=== PATIENT | male | born 1975 | race Caucasian/White ===

== ENCOUNTER 2018-03-01 04:57 | Observation (INO) | payer OTHER, SELFPAY ==
[2018-03-01] VITALS (8 sets, daily range): BP systolic 101–136; BP diastolic 42–80; PULSE 51–88; RESP 14–18; TEMP 36.3–36.7; O2SAT 97–99; BMI 37.5; BMI 35.9
--- NOTE | 2018-03-01 05:37 | ED.DCSUM_ITS ---
- ER Visit Summary Date of Service: 03/01/18 Chief Complaint: biLateral arm pain and weakness History of Present Illness: The patient is a 42 M who presents for 1 day of bilateral arm pain and weakness. 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 He rolled over in bed and when he woke up noted that it was painful to lift his arms above his head. He also had difficulty due to perceived weakness. His joints in the upper extremities, especially in the fingers, feels swollen and stiff. He has diffuse paresthesias in the bilateral hands, with most affected in the third through fifth fingers. Pain radiates from the shoulder joints down the arms, worse with movement and improved if he holds still. No known injury to the neck or upper body. No numbness, weakness or pain in the lower extremities. No bowel or bladder dysfunction. No fever, neck pain, headache other than some chronic neck stiffness. No medical history. Physical Examination: Vital signs: afebrile, hemodynamically stable, no hypoxia on room air General: well nourished, well developed, in no distress Skin: warm, dry, no rash, no pallor HEENT: normocephalic and atraumatic; PERRL, EOMI, moist mucous membranes Cardiovascular: regular rate and rhythm without murmurs, no peripheral edema, 2 + pulses all distal extremities Respiratory: No increased work of breathing, lungs are clear to auscultation bilaterally, no rales, rhonchi or wheezing Abdominal: Abdomen is soft, nontender with normoactive bowel sounds, no guarding or rebound, no masses MSK: Moves all extremities, no deformities, normal objective strength in upper extremities all joints, slow movement with shoulder flexion and extension. No obvious swelling. Neuro: Awake and alert, oriented ?4. No facial droop, sensation and motor function intact and symmetric Test Results: Abnormal Lab Results 03/01/18 03/01/18 03/01/18 05:45 05:55 05:55 WBC 5.4 RBC 4.45 L Hgb 13.1 Hct 40.6 MCV 91.2 MCH 29.4 MCHC 32.3 RDW 13.5 RDW Differential 44.1 H Plt Count 275 MPV 10.6 Immature Gran % (Auto) 0.400 Neut % (Auto) 47.2 Lymph % (Auto) 32.0 [place] % (Auto) 12.4 H Eos % (Auto) 6.1 H Baso % (Auto) 1.9 H Absolute Neuts (auto) 2.6 Absolute Lymphs (auto) 1.73 Total Counted Not Reportable ESR 13 Sodium 141 Potassium 4.9 Chloride 106 Carbon Dioxide 29.0 Anion Gap 6 BUN 14 Creatinine 0.82 Estim Creat Clear Calc 114.96 Est GFR (MDRD) Af Amer 130 Est GFR (MDRD) Non-Af 108 BUN/Creatinine Ratio 17.0 Glucose 100 Calcium 8.4 L Magnesium 2.4 Total Bilirubin 0.30 AST 26 ALT 35 Alkaline Phosphatase 83 Total Creatine Kinase C-React Prot Ext Range 8.66 H Total Protein 7.2 Albumin 3.6 Globulin 3.6 Albumin/Globulin Ratio 1.0 TSH 2.14 POC Glucose 106 03/01/18 05:55 WBC RBC Hgb Hct MCV MCH MCHC RDW RDW Differential Plt Count MPV Immature Gran % (Auto) Neut % (Auto) Lymph % (Auto) [place] % (Auto) Eos % (Auto) Baso % (Auto) Absolute Neuts (auto) Absolute Lymphs (auto) Total Counted ESR Sodium Potassium Chloride Carbon Dioxide Anion Gap BUN Creatinine Estim Creat Clear Calc Est GFR (MDRD) Af Amer Est GFR (MDRD) Non-Af BUN/Creatinine Ratio Glucose Calcium Magnesium Total Bilirubin AST ALT Alkaline Phosphatase Total Creatine Kinase 118 C-React Prot Ext Range Total Protein Albumin Globulin Albumin/Globulin Ratio TSH POC Glucose Emergency Department Course and Treatment: Patient presents with subjective weakness and sensory deficits in the bilateral arms but no objective findings. He also has pain in the arms starting at the shoulders and radiating down. Differential includes neurologic source, rheumatologic, autoimmune, anabolic, overuse with myositis, among other possibilities. Labs showed no leukocytosis or anemia, no electrolyte derangements, normal CK, normal mag, normal TSH, ESR of 13, an elevated CRP of 8.66. Given that symptoms are bilateral and there is a large component with no objective neurologic deficits, suspicion for a spinal cord source is lower, and stroke is highly unlikely. Patient was discussed with Dr. Gonzalez, who agreed it is less likely neurologic more likely rheumatologic or autoimmune, but that further workup is warranted. Imaging was not performed in the emergency department, as MRI not available at this time and x-ray or CT scan is likely low yield. Patient was discussed with the hospitalist for admission for further workup of patient's acute upper extremity deficits. Treatment Plan: [] Disposition: [] Impression: bilateral arm weakness, bilateral arm pain This note was generated with [employer] dictation software. It may contain incorrect words, spelling, and punctuation that were not noted in review of the chart prior to signing ED Disposition - Plan for ED Patient: Chief Complaint: Upper Extremity Injury Referrals: Antoine Tate III, MD [Primary Care Provider] -
[2018-03-01] MEDS: Ibuprofen 400 MG Tablet 800 MG PO (05:42)
[2018-03-01 05:51] LABS: Bedside Glucose 106 mg/dL (70-110)
[2018-03-01 06:15] LABS: Absolute Lymphocyte Count 1.73 X10^3/ul (0.83-4.51); Absolute Neutrophil Count 2.6 X10^3/uL (2.0-7.7); Basophil% 1.9 % (0-1); Eosinophil# 0.33 X10^3/uL; Eosinophils% 6.1 % (0-5); Hematocrit 40.6 % (40-54); Hemoglobin 13.1 g/dl (13.0-16.5); Lymphocyte # 1.73 X10^3/ul (4.0); Mean Corp Hgb Conc 32.3 g/gl (32-36); Mean Corpuscular Hgb 29.4 pg (27.0-32.0); Mean Corpuscular Volume 91.2 fL (80-94); Mean Platelet Vol. 10.6 fl (6.2-12.0); Monocyte# 0.67 X10^3/uL; Monocyte% 12.4 % (0-10); Neutrophil # 2.55 X10^3/uL (2.7-7.7); Neutrophil % 47.2 % (47-70); Platelet Count 275 K/mm3 (150-450); RBC Distribution Width CV 13.5 % (11.6-14.6); RBC Distribution Width SD 44.1 fl (35.1-43.9); Red Blood Count 4.45 M/mm3 (4.6-6.2); White Blood Count 5.4 K/mm3 (4.4-11.0)
[2018-03-01 06:21] LABS: POSITIVE COUNT NO; POSITIVE DIFFERENTIAL NO; POSITIVE MORPHOLOGY NO
[2018-03-01 06:25] LABS: Erythrocyte Sedimentation Rate 13 mm/hr (0-15)
[2018-03-01 06:28] LABS: CPK Total, Creatine Kinase 118 U/L (39-308)
[2018-03-01 06:34] LABS: AST(SGOT) 26 U/L (15-37); Alanine Aminotransfer ALT/SGPT 35 U/L (16-61); Albumin, Serum 3.6 g/dL (3.2-5.0); Alkaline Phosphatase 83 U/L (45-117); Anion Gap 6 (5-15); BUN 14 mg/dL (7-18); CRP 8.66 mg/L (0.0-3.0); Calcium,Total 8.4 mg/dL (8.5-10.1); Chloride 106 mmol/L (98-107); Creatinine, Serum 0.82 mg/dL (0.70-1.30); EST Glomerular Filtration Rate 108 mL/min (>60); Est Glom Filt Rate - Afr Amer 130 mL/min (>60); Estimated Creatinine Clearance 114.96 ml/min; Globulin 3.6 g/dL (2.2-4.2); Glucose 100 mg/dL (74-106); Magnesium 2.4 mg/dL (1.6-2.6); Potassium 4.9 mmol/L (3.5-5.1); Protein, Total 7.2 g/dL (6.4-8.2); Sodium Level 141 mmol/L (136-145); Thyroid Stim Hormone (TSH) 2.14 uIU/mL (0.358-3.74)
--- NOTE | 2018-03-01 07:15 | NURSING ---
DR YONG TURCIOS
--- NOTE | 2018-03-01 07:20 | NURSING ---
DR BEACH IN ER
--- NOTE | 2018-03-01 07:44 | MRI_ITS ---
STUDY: MRI CERVICAL SPINE WITHOUT CONTRAST REASON FOR EXAM: Male, 42 years old. hand paresthesias, arm pain bilat, weakness, nki. TECHNIQUE: Standardized fat and water weighted pulse sequences were obtained in the sagittal and axial planes. COMPARISON: None FINDINGS: Normal foramen magnum and brainstem-cervical cord junction. Normal craniovertebral junction. Normal anterior atlantoaxial articulation. Normal odontoid process. Normal cervical lordosis. Normal vertebral bodies and posterior osseous elements. C2-3: Normal endplates. Normal disc height, signal and morphology. Normal central canal and intervertebral neural foramina. C3-4: There is minimal disc space narrowing and endplate spondylosis. There is no central canal or foraminal stenosis. C4-5: Normal endplates. Normal disc height, signal and morphology. Normal central canal and intervertebral neural foramina. C5-6: Normal endplates. Normal disc height, signal and morphology. Normal central canal and intervertebral neural foramina. C6-7: There is minimal disc space narrowing and endplate spondylosis. There is no central canal or foraminal stenosis. C7-T1: Normal endplates. Normal disc height, signal and morphology. Normal central canal and intervertebral neural foramina. Normal cervical cord. There are enlarged bilaterally cervical lymph nodes most prominent at the jugulodigastric regions and measuring up to 2 cm. MRI/Spine Cervical (Routine) IMPRESSION: No central canal or foraminal stenosis. Minimal degenerative changes. Bilateral neck lymphadenopathy. Differential considerations are inflammatory, infectious and neoplastic disease. Electronically Signed: Meet Alarcon MD at 9:16 EDT Tel , Service support ,
--- NOTE | 2018-03-01 09:41 | NURSING ---
DR BEACH IN ER
--- NOTE | 2018-03-01 09:51 | CT_ITS ---
STUDY: CT BRAIN WITHOUT CONTRAST REASON FOR EXAM: Male, 42 years old. NUMBNESS IN UPPER ARMS. RADIATION DOSAGE (If Supplied By Facility): CTDIvol = ( 44.99 ) mGy, DLP = ( 762.36 ) mGycm TECHNIQUE: Transaxial CT imaging of the brain was performed without administration of intravenous contrast material. Individualized dose optimization techniques were used for this CT. COMPARISON: None. FINDINGS: There is left periventricular and parietal hypodensities, consistent with prior insult. Normal size ventricles and extra-axial spaces for the patient's age. Normal white matter tracts of the cerebral hemispheres. Normal basal ganglia and thalami. Normal brainstem. Normal cerebellum. There is no intracranial hemorrhage. There are no findings of an acute ischemic infarction. There is mucoperiosteal inflammatory disease of the paranasal sinuses consistent with mild chronic sinusitis. CT/Brain/Head without Contrast IMPRESSION: Left parietal and periventricular chronic infarcts. Electronically Signed: Meet Alarcon MD at 10:44 EDT Tel , Service support ,
--- NOTE | 2018-03-01 09:51 | CT_ITS ---
STUDY: CT CHEST WITH CONTRAST REASON FOR EXAM: Male, 42 years old. PARASTHESIAS UPPER EXTREMITIES. RADIATION DOSAGE (If Supplied By Facility): CTDIvol = ( 18.29 ) mGy, DLP = ( 746.61 ) mGycm TECHNIQUE: Transaxial imaging was performed following intravenous administration of 100 ml of Isovue 300 contrast material. Individualized dose optimization techniques were used for this CT. COMPARISON: None. FINDINGS: The lungs are normal. There is no demonstrated pleural abnormality. Normal heart and pericardium. Normal mediastinum. Normal hilar regions. Normal enhanced pulmonary arteries. Normal aorta arch and descending thoracic aorta. There are multi-level degenerative changes of the thoracic spine. There is no demonstrated abnormality of the visualized upper abdomen. CT/Chest WITH Contrast IMPRESSION: Unremarkable enhanced CT Chest examination. Electronically Signed: Meet Alarcon MD at 10:38 EDT Tel , Service support ,
--- NOTE | 2018-03-01 11:10 | PCM.HP.STD ---
Problem List (1) CVA (cerebral vascular accident) Status: Acute (2) Upper extremity weakness Status: Acute History of Present Illness Date of Admission: 03/01/18 Chief Complaint: weakness and pain in upper extremities The patient is a 42 year old M presents with pain, weakness and paresthesias in his upper extremities that began on the 17th in the morning. Symptoms persisted and patient was unable to sleep due to pain. Patient presented to the emergency room for a workup. Patient had an elevated CRP but normal ESR. Otherwise labs were unremarkable. I was asked to it the patient for further workup despite no imaging being performed. 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 So concern was for a herniated disc. Patient underwent an MRI of his neck that on my evaluation show some disc bulge but no cord compromise and the report made no mention that but did note cervical lymphadenopathy. Given the cervical lymphadenopathy is concern for possible malignancy though the patient did report a recent illness about a week prior. Patient underwent a CT of his chest which was unremarkable and a CT of his head that showed a chronic left parietal stroke. Patient thinks that he had a brain bleed but it was so long ago when he was a child he does not know the specifics. The patient is being admitted for further stroke evaluation. [] Past Medical History Allergies tramadol Adverse Reaction (Verified 03/01/18 05:03) Other Home Medications: Ambulatory Orders Medication Instructions Recorded NK [NK] 03/01/18 Surgical History: total hip arthroplasty Psychiatric History: No pertinent psych hx Smoking Status: Never smoker Tobacco Use: Non-smoker Alcohol: Rare Drugs: None - *Family History Maternal History Items: - - No neurologic disorder Review of Systems Constitutional: Denies: Chills, Fever, Weight Change Eyes: Denies: Blurred vision, Double vision HEENT: Denies: Head Aches, Sinus Congestion, Sinus Drainage Cardiovascular: Denies: Chest Pain, Palpitations Respiratory: Denies: Cough, Shortness of breath at rest, Sputum production Gastrointestinal: Denies: Abdominal Pain, Nausea, Vomiting Genitourinary: Denies: Dysuria Musculoskeletal: Reports: - - Lateral upper extremity pain and paresthesias. Skin: Denies: Rash, Wounds Neurological: Reports: Focal weakness - Numbness of the upper extremities. Denies: Blurred vision, Double vision, Numbness, Tingling Psychiatric: Denies: Anxiety, Depression Endocrine: Denies: Change in Body Habitus, Heat/ Cold Intolerance Hematologic/ Lymphatic: Denies: Easy Bruising, Easy Bleeding, Hx of blood clot VTE Information - Inpt Only VTE Present on Admission: No VTE Pharm Prophylaxis ordered?: Yes Patient Problems: Active and Suspected Problems CVA (cerebral vascular accident) (Acute) Upper extremity weakness (Acute) - Physical Exam General: Alert, Cooperative, No apparent distress HEENT: Atraumatic, PERRLA, EOMI, Normocephalic Oral: Moist Mucosa, No Gingival or Mucosal Lesions/ Ulcerations Neck: No Nodes, Thyroid Normal Size and Texture Lungs: Clear to auscultation, Normal air movement, No rhonchi, No wheeze Cardiovascular: Regular rate, Regular Rhythm, Normal S1, Normal S2 Abdomen: Bowel Sounds Present, Soft, Non Tender, Non-Distended, No Hepato-splenomegaly Extremities: No edema, No Calf Tenderness Skin: No rashes, No breakdown Musculoskeletal: No Tenderness to Palpation of Joints or Extremities, No Muscle Wasting Neurological: Cranial nerves II-XII grossly intact, Motor Exam 5/5 strength throughout, - - She does walk with a elongating gait with compensation for his right lower extremity. Psych/Mental Status: Normal Affect, Appropriate Vital Signs Temp Pulse Resp BP Pulse Ox 36.3 C L 81 16 131/75 H 99 03/01/18 04:59 03/01/18 10:02 03/01/18 10:02 03/01/18 10:02 03/01/18 10:02 Oxygen Delivery Method Room Air Weight: 115.2 kg Body Mass Index (BMI) 37.5 Finger Stick Blood Glucose 106 Laboratory Tests Past 24 Hrs 03/01/18 03/01/18 03/01/18 05:45 05:55 05:55 WBC 5.4 RBC 4.45 L Hgb 13.1 Hct 40.6 MCV 91.2 MCH 29.4 MCHC 32.3 RDW 13.5 RDW Differential 44.1 H Plt Count 275 MPV 10.6 Immature Gran % (Auto) 0.400 Neut % (Auto) 47.2 Lymph % (Auto) 32.0 [place] % (Auto) 12.4 H Eos % (Auto) 6.1 H Baso % (Auto) 1.9 H Absolute Neuts (auto) 2.6 Absolute Lymphs (auto) 1.73 Total Counted Not Reportable ESR 13 Sodium 141 Potassium 4.9 Chloride 106 Carbon Dioxide 29.0 Anion Gap 6 BUN 14 Creatinine 0.82 Estim Creat Clear Calc 114.96 Est GFR (MDRD) Af Amer 130 Est GFR (MDRD) Non-Af 108 BUN/Creatinine Ratio 17.0 Glucose 100 Calcium 8.4 L Magnesium 2.4 Total Bilirubin 0.30 AST 26 ALT 35 Alkaline Phosphatase 83 Total Creatine Kinase C-React Prot Ext Range 8.66 H Total Protein 7.2 Albumin 3.6 Globulin 3.6 Albumin/Globulin Ratio 1.0 TSH 2.14 POC Glucose 106 03/01/18 05:55 WBC RBC Hgb Hct MCV MCH MCHC RDW RDW Differential Plt Count MPV Immature Gran % (Auto) Neut % (Auto) Lymph % (Auto) [place] % (Auto) Eos % (Auto) Baso % (Auto) Absolute Neuts (auto) Absolute Lymphs (auto) Total Counted ESR Sodium Potassium Chloride Carbon Dioxide Anion Gap BUN Creatinine Estim Creat Clear Calc Est GFR (MDRD) Af Amer Est GFR (MDRD) Non-Af BUN/Creatinine Ratio Glucose Calcium Magnesium Total Bilirubin AST ALT Alkaline Phosphatase Total Creatine Kinase 118 C-React Prot Ext Range Total Protein Albumin Globulin Albumin/Globulin Ratio TSH POC Glucose POC Glucose 03/01/18 05:45 POC Glucose 106 Clinical Impression(s) from Imaging Studies Cervical Spine MRI 03/01/18 07:44 IMPRESSION: No central canal or foraminal stenosis. Minimal degenerative changes. Bilateral neck lymphadenopathy. Differential considerations are inflammatory, infectious and neoplastic disease. Electronically Signed: Meet Alarcon MD at 9:16 EDT Tel , Service support , Brain CT 03/01/18 09:51 IMPRESSION: Left parietal and periventricular chronic infarcts. Electronically Signed: Meet Alarcon MD at 10:44 EDT Tel , Service support , Chest CT 03/01/18 09:51 IMPRESSION: Unremarkable enhanced CT Chest examination. Electronically Signed: Meet Alarcon MD at 10:38 EDT Tel , Service support , Assessment/Plan Active and Suspected Problems CVA (cerebral vascular accident) (Acute) Upper extremity weakness (Acute) 1. Strokes Appear to be chronic on the CAT scan but given the patient's new symptoms I feel would be prudent to do an evaluation. Neurologically he is intact and has an NIH of 0. The patient will undergo a further stroke workup with MRA of his head neck MRI of his brain, echocardiogram, neurology consultation. He will be started on aspirin I am not sure if the patient had a stroke when he was 2 years old or if he hit his head that caused a subdural or epidural hemorrhage. 2. Upper extremity weakness and pain Unclear if this is related with something neurologic but will complete the neurologic workup. No herniated disc per the report though I do feel that there is a subtle disc bulge couple levels but certainly no cord compromise. 3. Cervical lymphadenopathy This is a likely related with the patient's recent upper respiratory illness No evidence of any mass on his chest nor any brain lesions. No additional workup necessary at this time. 4. elevated CRP Probably related with patient's recent upper respiratory illness. Would not do any additional workup at this time. 5. DVT prophylaxis with low molecular weight heparin. Code Visit OBSV E&M: 83901 Initial observation care L3
--- NOTE | 2018-03-01 11:17 | NURSING ---
89 OBS ARM WEAKNESS, OLD CVA YONG
--- NOTE | 2018-03-01 11:19 | HP.PCM_ITS ---
Problem List (1) CVA (cerebral vascular accident) Status: Acute (2) Upper extremity weakness Status: Acute History of Present Illness Date of Admission: 03/01/18 Chief Complaint: weakness and pain in upper extremities The patient is a 42 year old M presents with pain, weakness and paresthesias in his upper extremities that began on the 17th in the morning. Symptoms persisted and patient was unable to sleep due to pain. Patient presented to the emergency room for a workup. Patient had an elevated CRP but normal ESR. Otherwise labs were unremarkable. I was asked to it the patient for further workup despite no imaging being performed. 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 So concern was for a herniated disc. Patient underwent an MRI of his neck that on my evaluation show some disc bulge but no cord compromise and the report made no mention that but did note cervical lymphadenopathy. Given the cervical lymphadenopathy is concern for possible malignancy though the patient did report a recent illness about a week prior. Patient underwent a CT of his chest which was unremarkable and a CT of his head that showed a chronic left parietal stroke. Patient thinks that he had a brain bleed but it was so long ago when he was a child he does not know the specifics. The patient is being admitted for further stroke evaluation. [] Past Medical History Allergies tramadol Adverse Reaction (Verified 03/01/18 05:03) Other Home Medications: Ambulatory Orders Medication Instructions Recorded NK [NK] 03/01/18 Surgical History: total hip arthroplasty Psychiatric History: No pertinent psych hx Smoking Status: Never smoker Tobacco Use: Non-smoker Alcohol: Rare Drugs: None - *Family History Maternal History Items: - - No neurologic disorder Review of Systems Constitutional: Denies: Chills, Fever, Weight Change Eyes: Denies: Blurred vision, Double vision HEENT: Denies: Head Aches, Sinus Congestion, Sinus Drainage Cardiovascular: Denies: Chest Pain, Palpitations Respiratory: Denies: Cough, Shortness of breath at rest, Sputum production Gastrointestinal: Denies: Abdominal Pain, Nausea, Vomiting Genitourinary: Denies: Dysuria Musculoskeletal: Reports: - - Lateral upper extremity pain and paresthesias. Skin: Denies: Rash, Wounds Neurological: Reports: Focal weakness - Numbness of the upper extremities. Denies: Blurred vision, Double vision, Numbness, Tingling Psychiatric: Denies: Anxiety, Depression Endocrine: Denies: Change in Body Habitus, Heat/ Cold Intolerance Hematologic/ Lymphatic: Denies: Easy Bruising, Easy Bleeding, Hx of blood clot VTE Information - Inpt Only VTE Present on Admission: No VTE Pharm Prophylaxis ordered?: Yes Patient Problems: Active and Suspected Problems CVA (cerebral vascular accident) (Acute) Upper extremity weakness (Acute) - Physical Exam General: Alert, Cooperative, No apparent distress HEENT: Atraumatic, PERRLA, EOMI, Normocephalic Oral: Moist Mucosa, No Gingival or Mucosal Lesions/ Ulcerations Neck: No Nodes, Thyroid Normal Size and Texture Lungs: Clear to auscultation, Normal air movement, No rhonchi, No wheeze Cardiovascular: Regular rate, Regular Rhythm, Normal S1, Normal S2 Abdomen: Bowel Sounds Present, Soft, Non Tender, Non-Distended, No Hepato- splenomegaly Extremities: No edema, No Calf Tenderness Skin: No rashes, No breakdown Musculoskeletal: No Tenderness to Palpation of Joints or Extremities, No Muscle Wasting Neurological: Cranial nerves II-XII grossly intact, Motor Exam 5/5 strength throughout, - - She does walk with a elongating gait with compensation for his right lower extremity. Psych/Mental Status: Normal Affect, Appropriate Vital Signs Temp Pulse Resp BP Pulse Ox 36.3 C L 81 16 131/75 H 99 03/01/18 04:59 03/01/18 10:02 03/01/18 10:02 03/01/18 10:02 03/01/18 10:02 Oxygen Delivery Method Room Air Weight: 115.2 kg Body Mass Index (BMI) 37.5 Finger Stick Blood Glucose 106 Laboratory Tests Past 24 Hrs 03/01/18 03/01/18 03/01/18 05:45 05:55 05:55 WBC 5.4 RBC 4.45 L Hgb 13.1 Hct 40.6 MCV 91.2 MCH 29.4 MCHC 32.3 RDW 13.5 RDW Differential 44.1 H Plt Count 275 MPV 10.6 Immature Gran % (Auto) 0.400 Neut % (Auto) 47.2 Lymph % (Auto) 32.0 [place] % (Auto) 12.4 H Eos % (Auto) 6.1 H Baso % (Auto) 1.9 H Absolute Neuts (auto) 2.6 Absolute Lymphs (auto) 1.73 Total Counted Not Reportable ESR 13 Sodium 141 Potassium 4.9 Chloride 106 Carbon Dioxide 29.0 Anion Gap 6 BUN 14 Creatinine 0.82 Estim Creat Clear Calc 114.96 Est GFR (MDRD) Af Amer 130 Est GFR (MDRD) Non-Af 108 BUN/Creatinine Ratio 17.0 Glucose 100 Calcium 8.4 L Magnesium 2.4 Total Bilirubin 0.30 AST 26 ALT 35 Alkaline Phosphatase 83 Total Creatine Kinase C-React Prot Ext Range 8.66 H Total Protein 7.2 Albumin 3.6 Globulin 3.6 Albumin/Globulin Ratio 1.0 TSH 2.14 POC Glucose 106 03/01/18 05:55 WBC RBC Hgb Hct MCV MCH MCHC RDW RDW Differential Plt Count MPV Immature Gran % (Auto) Neut % (Auto) Lymph % (Auto) [place] % (Auto) Eos % (Auto) Baso % (Auto) Absolute Neuts (auto) Absolute Lymphs (auto) Total Counted ESR Sodium Potassium Chloride Carbon Dioxide Anion Gap BUN Creatinine Estim Creat Clear Calc Est GFR (MDRD) Af Amer Est GFR (MDRD) Non-Af BUN/Creatinine Ratio Glucose Calcium Magnesium Total Bilirubin AST ALT Alkaline Phosphatase Total Creatine Kinase 118 C-React Prot Ext Range Total Protein Albumin Globulin Albumin/Globulin Ratio TSH POC Glucose POC Glucose 03/01/18 05:45 POC Glucose 106 Clinical Impression(s) from Imaging Studies Cervical Spine MRI 03/01/18 07:44 IMPRESSION: No central canal or foraminal stenosis. Minimal degenerative changes. Bilateral neck lymphadenopathy. Differential considerations are inflammatory, infectious and neoplastic disease. Electronically Signed: Meet Alarcon MD at 9:16 EDT Tel , Service support , Brain CT 03/01/18 09:51 IMPRESSION: Left parietal and periventricular chronic infarcts. Electronically Signed: Meet Alarcon MD at 10:44 EDT Tel , Service support , Chest CT 03/01/18 09:51 IMPRESSION: Unremarkable enhanced CT Chest examination. Electronically Signed: Meet Alarcon MD at 10:38 EDT Tel , Service support , Assessment/Plan Active and Suspected Problems CVA (cerebral vascular accident) (Acute) Upper extremity weakness (Acute) 1. Strokes * Appear to be chronic on the CAT scan but given the patient's new symptoms I feel would be prudent to do an evaluation. Neurologically he is intact and has an NIH of 0. The patient will undergo a further stroke workup with MRA of his head neck MRI of his brain, echocardiogram, neurology consultation. * He will be started on aspirin * I am not sure if the patient had a stroke when he was 2 years old or if he hit his head that caused a subdural or epidural hemorrhage. 2. Upper extremity weakness and pain * Unclear if this is related with something neurologic but will complete the neurologic workup. No herniated disc per the report though I do feel that there is a subtle disc bulge couple levels but certainly no cord compromise. 3. Cervical lymphadenopathy * This is a likely related with the patient's recent upper respiratory illness * No evidence of any mass on his chest nor any brain lesions. * No additional workup necessary at this time. 4. elevated CRP * Probably related with patient's recent upper respiratory illness. Would not do any additional workup at this time. 5. DVT prophylaxis with low molecular weight heparin. Code Visit OBSV E&M: 64527 Initial observation care L3
--- NOTE | 2018-03-01 11:39 | MRI_ITS ---
STUDY: MRA OF THE HEAD WITHOUT CONTRAST REASON FOR EXAM: Male, 42 years old. bilateral hand /arm pain weakness, h/o prior cva. TECHNIQUE: 3-D [id number]-fycihd (TOF) imaging was performed with MIPs. The study was performed unenhanced. COMPARISON: None. FINDINGS: Normal bilateral petrous carotid arteries. Normal right cavernous carotid artery with a normal supraclinoid bifurcation. Normal left cavernous carotid artery with a normal supraclinoid bifurcation. Normal right A1 segments of the anterior cerebral artery. Normal left A1 segments of the anterior cerebral artery. Normal intact anterior communicating artery (ACOM). Normal bilateral A2 segments of the anterior cerebral arteries. Normal right M1 and M2 segments of the middle cerebral arteries, with a normal M1 bifurcation. Normal left M1 and M2 segments of the middle cerebral arteries, with a normal M1 bifurcation. Normal right posterior communicating artery (PCOM). There is non-visualization of the left posterior communicating artery (PCOM). Normal bilateral vertebral arteries. Normal basilar artery with a normal basilar bifurcation. The visualized bilateral superior cerebellar (SCA) arteries are normal. Normal bilateral P1, P2 and visualized P3 segments of the posterior cerebral arteries. There is no demonstrated aneurysm of the [place]. There is no major vessel occlusion or hemodynamically significant stenosis. There is no demonstrated abnormality of the visualized brain. MRI/MRA Head ONLY without Contrast IMPRESSION: Normal MRA of the head Electronically Signed: Meet Alarcon MD at 14:48 EDT Tel , Service support ,
--- NOTE | 2018-03-01 11:39 | MRI_ITS ---
STUDY: MRI BRAIN WITH AND WITHOUT CONTRAST REASON FOR EXAM: Male, 42 years old. bilater ue weakness, h/o prior cva, bilat hand and arm pain. TECHNIQUE: Standardized multiplanar fat and water weighted pulse sequences were obtained. 10 ml of Gadavist contrast material was administered intravenously for the contrast portion of the examination. COMPARISON: CT of the head 03/01/2018 FINDINGS: There is mild cerebral atrophy with widening of the extra-axial spaces and ventricular dilatation. There are a limited number of small white matter hyperintensities, distributed throughout the deep white matter tracts of the cerebral hemispheres, consistent with mild chronic white matter ischemic changes. Again noted is the left periventricular and left parietal encephalomalacia and gliosis, consistent with prior insult. Normal bilateral basal ganglia. Normal thalami. There is no extra-axial fluid accumulation. Normal flow voids within the major intracranial circulation suggesting patency by spin echo criteria. Normal venous enhancement. There is no enhancing intra-axial or extra-axial abnormality. Normal sella turcica, pituitary gland, infundibular stalk, optic chiasm and hypothalamus. Normal tectal plate and pineal gland. Normal midbrain, bib and medulla. Normal cerebellum. Normal basal cisterns. Normal bilateral temporal bones. Normal bilateral internal auditory canals. No demonstrated orbital abnormality, within the constraints of a routine brain study. There is mucoperiosteal inflammatory disease of the paranasal sinuses consistent with mild chronic sinusitis. MRI/Brain W/WO Contrast IMPRESSION: No acute intracranial abnormality or masses. Left periventricular and parietal chronic infarcts. Electronically Signed: Meet Alarcon MD at 16:03 EDT Tel , Service support ,
--- NOTE | 2018-03-01 11:39 | MRI_ITS ---
STUDY: MRA NECK WITH AND WITHOUT CONTRAST REASON FOR EXAM: Male, 42 years old. hx cva, bilat arm pain,weakness. TECHNIQUE: 3-D qbxg-fk-oxopyw (TOF) imaging was performed in an 1.5 T MRI scanner. 10 ml of Gadavist was administered for the contrast enhanced images. COMPARISON: None. FINDINGS: RIGHT CAROTID ARTERIES: Normal right common carotid artery (CCA). Normal right common carotid bulb. Normal origin of the right internal carotid (ICA) artery without a hemodynamically significant stenosis. Normal visualized cervical portion of the right internal carotid artery. Normal origin of the right external carotid artery (ECA). LEFT CAROTID ARTERIES: Normal left common carotid artery (CCA). Normal left common carotid bulb. Normal origin of the left internal carotid (ICA) artery without a hemodynamically significant stenosis. Normal visualized cervical portion of the left internal carotid artery. Normal origin of the left external carotid artery (ECA). VERTEBRAL ARTERIES: Normal antegrade flow within the bilateral vertebral artery without a hemodynamically significant stenosis. MRI/MRA Neck WITH and W/O Contrast IMPRESSION: Normal bilateral cervical carotid and vertebral arteries. Electronically Signed: Meet Alarcon MD at 14:50 EDT Tel , Service support ,
--- NOTE | 2018-03-01 11:39 | ECHOD_ITS ---
Reason For Study: TIA/STROKE Procedure This was a 2D Doppler, Color Flow transthoracic echocardiogram. Exam performed portable in patient room. Left Ventricle Normal size and thickness. The estimated ejection fraction is 65 %. Normal diastology for age. No regional wall motion abnormalities noted. Right Ventricle Normal size and thickness. Normal systolic function. Atria The left atrium is mildly enlarged. Normal right atrium. Normal atrial septum. Bubble contrast study negative for right to left interatrial shunt. Mitral Valve The mitral valve is structurally normal. No prolapse or stenosis seen. Tricuspid Valve Normal tricuspid valve. Trivial tricuspid valve insufficiency. Right ventricular systolic pressure estimated to be 26 mmHg. Aortic Valve Normal aortic valve. Trisinus/trileaflet aortic valve. Pulmonic Valve Normal pulmonic valve. Trivial pulmonic valve insufficiency. Great Vessels Normal aortic root. Normal arch. Normal inferior vena cava. Inferior vena cava collapse with sniff. Pericardium/Pleural No pericardial effusion. Medication Performed a rapid injection of agitated mix of 9 cc saline and 1cc air to assess for atrial septal defect. MMode/2D Measurements & Calculations LVIDd: 5.1 cm IVSd: 0.92 cm Ao root diam: 3.3 cm LVIDs: 2.9 cm LVPWd: 0.94 cm LA dimension: 4.5 cm RVDd: 3.9 cm FS: 43.3 % LAV(MOD-bp): 76.3 ml LVAd ap4: 41.0 cm2 SV(MOD-sp4): 84.6 ml LAV(MOD-bp) Indexed: 33.4 ml/m2 EDV(MOD-sp4): 151.1 ml LAV(MOD-sp2): 81.5 ml EDV(sp4-el): 157.2 ml LAV(MOD-sp4): 66.4 ml LVAs ap4: 23.2 cm2 ESV(MOD-sp4): 66.5 ml ESV(sp4-el): 67.4 ml EF(MOD-sp4): 56.0 % EF(sp4-el): 57.1 % SV(sp4-el): 89.8 ml LA A4 area: 21.8 cm2 RA A4 area: 15.3 cm2 Doppler Measurements & Calculations MV E max emmanuel: 99.7 cm/sec Lat Peak E' Emmanuel: 16.7 cm/sec Med Peak E' Emmanuel: 16.3 cm/sec MV A max emmanuel: 49.1 cm/sec E/E' lat: 6.0 E/E' med: 6.1 MV E/A: 2.0 Ao V2 max: 130.4 cm/sec LV V1 max: 120.2 cm/sec PA V2 max: 135.1 cm/sec Ao max P.8 mmHg LV V1 max P.8 mmHg PI end-d emmanuel: 106.2 cm/sec TR max emmanuel: 230.5 cm/sec TR max P.2 mmHg Interpretation Summary The estimated ejection fraction is 65 %. Normal diastology for age. The left atrium is mildly enlarged. Bubble contrast study negative for right to left interatrial shunt. Trivial tricuspid valve insufficiency. Right ventricular systolic pressure estimated to be 26 mmHg. There is no comparison study available. Ordering Physician: Uri Britton Referring Physician: JOSE JEFFERSON Performed By: Ashely Myles RDCS, RVT
[2018-03-01] MEDS: Aspirin 325 MG Tablet PO (13:28)
--- NOTE | 2018-03-01 13:55 | CON.PCM_ITS ---
Reason for Consult Date of Consultation: 03/01/18 Reason for Consultation: Bilateral shoulder pain History of Present Illness: The patient is a 42 year old handed white male who is deviously healthy although remotely at age 2 he apparently had an intracerebral hemorrhage which has caused some mild right sided weakness which is chronic. 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 At 4 AM on 02/28/18 he began to experience shoulder pain which became progressively worse causing him to not be able to sleep last night and he came to the emergency department. Workup was negative in the emergency department. He was given some ibuprofen which has improved his discomfort in the right shoulder and to a lesser extent in the left shoulder. He has been healthy otherwise where he says he did have a flu type illness several days ago. He has been otherwise healthy. Past Medical History Allergies tramadol Adverse Reaction (Verified 03/01/18 05:03) Other Home Medications: Ambulatory Orders Medication Instructions Recorded NK [NK] 03/01/18 Surgical History: total hip arthroplasty Psychiatric History: No pertinent psych hx Smoking Status: Never smoker Tobacco Use: Non-smoker Alcohol: Rare Drugs: None - *Family History Maternal History Items: - - No neurologic disorder Review of Systems Constitutional: Denies: Chills, Fever, Weight Change HEENT: Denies: Head Aches, Sinus Congestion, Sinus Drainage Cardiovascular: Denies: Chest Pain, Palpitations Respiratory: Denies: Cough, Shortness of breath at rest, Sputum production Gastrointestinal: Denies: Abdominal Pain, Nausea, Vomiting Genitourinary: Denies: Dysuria Musculoskeletal: Reports: Joint Tenderness. Denies: Joint Pain Skin: Denies: Rash, Wounds Neurological: Denies: Numbness, Tingling, Focal weakness Psychiatric: Denies: Anxiety, Depression, Homicidal Ideations, Suicidal Ideations Hematologic/ Lymphatic: Denies: Easy Bruising, Easy Bleeding Patient Problems: Active and Suspected Problems CVA (cerebral vascular accident) (Acute) Upper extremity weakness (Acute) Objective: He has mild chronic right hyperreflexia and spasticity, and has pain with palpation of his shoulders bilaterally worse on the left side which also demonstrates pain with passive range of motion. - Physical Exam General: Alert, Oriented x3, Cooperative HEENT: Atraumatic, PERRLA, EOMI, Normocephalic Neck: Supple, No JVD, Negative Carotid Bruits Lungs: Clear to auscultation, Normal air movement Cardiovascular: Regular rate, No murmurs Abdomen: Bowel Sounds Present, Soft, Non Tender Extremities: No edema, Capillary Refill Less than 3 Seconds Skin: No rashes, No breakdown Musculoskeletal: No Tenderness to Palpation of Joints or Extremities Neurological: Cranial nerves II-XII grossly intact Psych/Mental Status: Normal Affect, Appropriate Vital Signs Temp Pulse Resp BP Pulse Ox 36.7 C 60 16 108/42 L 98 03/01/18 12:12 03/01/18 12:12 03/01/18 12:12 03/01/18 12:12 03/01/18 12:12 Oxygen Delivery Method Room Air Weight: 113.398 kg Body Mass Index (BMI) 35.9 I reviewed the MRI of his brain and MRI of his C-spine. The MRI of his brain showed his chronic left MCA distribution infarct as well as a chronic left lacunar infarct which I presume are related to his bleed as a child. There is nothing else acute in the MRI of his C-spine is essentially normal. Assessment/Plan Active and Suspected Problems CVA (cerebral vascular accident) (Acute) Upper extremity weakness (Acute) Impression: Arthralgias. I suspect these are probably post viral. His neurologic examination and evaluation is essentially normal. Agree with analgesics and await improvement.
[2018-03-01] MEDS: Ibuprofen 600 MG Tablet PO (14:54)
--- NOTE | 2018-03-01 16:31 | PCM.DC ---
- Discharge Diagnoses Current Active Problems: Current Active and Chronic Problems CVA (cerebral vascular accident) (Acute) Upper extremity weakness (Acute) You will use the following diet at home:: No restrictions Your food should be the consistency of: Regular Discharge Activity: Return to Normal Activity Call your doctor if you observe: Fever of 101 or Higher, - - increased weakness of upper extremities. Allergies/Adverse Reactions: Allergies tramadol Adverse Reaction (Verified 03/01/18 05:03) Other Medications to take at Discharge Acetaminophen [Tylenol Extra Strength] 1,000 mg PO TID #1 tablet 03/01/18 Ibuprofen 800 mg PO TID PRN #1 tablet 03/01/18 Omeprazole 20 mg PO DAILY #1 tablet. 03/01/18 The following prescriptions were given: Omeprazole 20 mg PO DAILY #1 tablet. Acetaminophen [Tylenol Extra Strength] 1,000 mg PO TID #1 tablet Ibuprofen 800 mg PO TID PRN #1 tablet PRN Reason: pain. fever Primary Care Physician: Antoine Tate III, MD [Primary Care Provider] - Within 2 Weeks Proposed Discharge Date: 03/01/18
--- NOTE | 2018-03-01 16:32 | PCM.DC.SUM ---
Discharge Date and Diagnosis - Problem List Patient Problems: Active and Suspected Problems Arthralgia (Acute) Upper extremity weakness (Acute) Date of Admission: 03/01/18 Date of Discharge: 03/01/18 - Primary Discharge Diagnosis Active and Suspected Problems Arthralgia (Acute) Upper extremity weakness (Acute) - Secondary Discharge Diagnosis Chronic Problems CVA (cerebral vascular accident) (Chronic) Hospital Course and Treatment Imaging Results: 03/01/18 11:39 Echo Complete [ECHO] Stat MRA Head ONLY without Contrast [MRI] Stat MRA Neck WITH and W/O Contrast [MRI] Stat MRI Brain [Brain W/WO Contrast] [MRI] Stat Clinical Impression(s) from Imaging Studies Cervical Spine MRI 03/01/18 07:44 IMPRESSION: No central canal or foraminal stenosis. Minimal degenerative changes. Bilateral neck lymphadenopathy. Differential considerations are inflammatory, infectious and neoplastic disease. Electronically Signed: Meet Alarcon MD at 9:16 EDT Tel , Service support , Brain CT 03/01/18 09:51 IMPRESSION: Left parietal and periventricular chronic infarcts. Electronically Signed: Meet Alarcon MD at 10:44 EDT Tel , Service support , Chest CT 03/01/18 09:51 IMPRESSION: Unremarkable enhanced CT Chest examination. Electronically Signed: Meet Alarcon MD at 10:38 EDT Tel , Service support , Brain MRI 03/01/18 11:39 IMPRESSION: No acute intracranial abnormality or masses. Left periventricular and parietal chronic infarcts. Electronically Signed: Meet lAarcon MD at 16:03 EDT Tel , Service support , Head MRA 03/01/18 11:39 IMPRESSION: Normal MRA of the head Electronically Signed: Meet Alarcon MD at 14:48 EDT Tel , Service support , Neck MRA 03/01/18 11:39 IMPRESSION: Normal bilateral cervical carotid and vertebral arteries. Electronically Signed: Meet Alarcon MD at 14:50 EDT Tel , Service support , Carlos Operations: None Procedures: 2-D Echocardiogram Summary of Care Provided: The patient is a 42 year old M who presents with upper extremity weakness and pain. Neurologic patient was intact but patient was noting paresthesias in his hands. I was asked to evaluate the patient's for admission for further workup. My concern was for a herniated disc so an MRI was performed while patient is in the ER. MRI did not show any cord compromise though I felt that there may been some mild disc bulge but certainly not causing any cord involvement but I did show cervical lymphadenopathy. Patient had a recent illness and presume is related with that but given the large lymphadenopathy we did a head CT and CT chest to evaluate for any potential malignant etiologies. Those were negative for any kind of masses but his CAT scan did show chronic strokes in the parietal region. Patient was then admitted to the hospital and underwent a further stroke workup. MRI just confirmed chronic strokes in the parietal region. Patient was seen in consultation by neurology who felt that that is part related with the patient's stroke that he had when he is 2 years old and recommend no further intervention about that. So patient is still having these arthralgias which may be post viral S patient had a recent infection. Patient instructed to take ibuprofen and Tylenol and alternate. I recommend the patient take 800 mg 3 times daily but if he is on that dose to take Prilosec along with that. Patient expressed understanding. Patient will return to work on the . [] Discharge Diet: No Restrictions Discharge Activity: Return to Normal Activity Call your doctor if you observe: Fever of 101 or Higher, - - increased weakness of upper extremities. Home Medications: Medications to take at Discharge Acetaminophen [Tylenol Extra Strength] 1,000 mg PO TID #1 tablet 03/01/18 Ibuprofen 800 mg PO TID PRN #1 tablet 03/01/18 Omeprazole 20 mg PO DAILY #1 tablet.dr 03/01/18 Following Prescrptions Were Given to Patient: Omeprazole 20 mg PO DAILY #1 tablet. Acetaminophen [Tylenol Extra Strength] 1,000 mg PO TID #1 tablet Ibuprofen 800 mg PO TID PRN #1 tablet PRN Reason: pain. fever Primary Care Physician: Antoine Tate III, MD [Primary Care Provider] - Within 2 Weeks Disposition: Home Minutes spent on discharge:: 45 Patient Condition:: Good Medical Necessity - Tobacco Use Smoking Status: Never smoker Tobacco Use: Non-smoker Meaningful Use Info Meaningful Use Diagnoses (Choose all that apply): None applicable Code Visit OBSV E&M: 28140 Observation care discharge
--- NOTE | 2018-03-01 16:36 | DS.PCM_ITS ---
Discharge Date and Diagnosis - Problem List Patient Problems: Active and Suspected Problems Arthralgia (Acute) Upper extremity weakness (Acute) Date of Admission: 03/01/18 Date of Discharge: 03/01/18 - Primary Discharge Diagnosis Active and Suspected Problems Arthralgia (Acute) Upper extremity weakness (Acute) - Secondary Discharge Diagnosis Chronic Problems CVA (cerebral vascular accident) (Chronic) Hospital Course and Treatment Imaging Results: 03/01/18 11:39 Echo Complete [ECHO] Stat MRA Head ONLY without Contrast [MRI] Stat MRA Neck WITH and W/O Contrast [MRI] Stat MRI Brain [Brain W/WO Contrast] [MRI] Stat Clinical Impression(s) from Imaging Studies Cervical Spine MRI 03/01/18 07:44 IMPRESSION: No central canal or foraminal stenosis. Minimal degenerative changes. Bilateral neck lymphadenopathy. Differential considerations are inflammatory, infectious and neoplastic disease. Electronically Signed: Meet Alarcon MD at 9:16 EDT Tel , Service support , Brain CT 03/01/18 09:51 IMPRESSION: Left parietal and periventricular chronic infarcts. Electronically Signed: Meet Alarcon MD at 10:44 EDT Tel , Service support , Chest CT 03/01/18 09:51 IMPRESSION: Unremarkable enhanced CT Chest examination. Electronically Signed: Meet Alarcon MD at 10:38 EDT Tel , Service support , Brain MRI 03/01/18 11:39 IMPRESSION: No acute intracranial abnormality or masses. Left periventricular and parietal chronic infarcts. Electronically Signed: Meet Alarcon MD at 16:03 EDT Tel , Service support , Head MRA 03/01/18 11:39 IMPRESSION: Normal MRA of the head Electronically Signed: Meet Alarcon MD at 14:48 EDT Tel , Service support , Neck MRA 03/01/18 11:39 IMPRESSION: Normal bilateral cervical carotid and vertebral arteries. Electronically Signed: Meet Alarcon MD at 14:50 EDT Tel , Service support , Carlos Operations: None Procedures: 2-D Echocardiogram Summary of Care Provided: The patient is a 42 year old M who presents with upper extremity weakness and pain. Neurologic patient was intact but patient was noting paresthesias in his hands. I was asked to evaluate the patient's for admission for further workup. My concern was for a herniated disc so an MRI was performed while patient is in the ER. MRI did not show any cord compromise though I felt that there may been some mild disc bulge but certainly not causing any cord involvement but I did show cervical lymphadenopathy. Patient had a recent illness and presume is related with that but given the large lymphadenopathy we did a head CT and CT chest to evaluate for any potential malignant etiologies. Those were negative for any kind of masses but his CAT scan did show chronic strokes in the parietal region. Patient was then admitted to the hospital and underwent a further stroke workup. MRI just confirmed chronic strokes in the parietal region. Patient was seen in consultation by neurology who felt that that is part related with the patient's stroke that he had when he is 2 years old and recommend no further intervention about that. So patient is still having these arthralgias which may be post viral S patient had a recent infection. Patient instructed to take ibuprofen and Tylenol and alternate. I recommend the patient take 800 mg 3 times daily but if he is on that dose to take Prilosec along with that. Patient expressed understanding. Patient will return to work on the . [] Discharge Diet: No Restrictions Discharge Activity: Return to Normal Activity Call your doctor if you observe: Fever of 101 or Higher, - - increased weakness of upper extremities. Home Medications: Medications to take at Discharge Acetaminophen [Tylenol Extra Strength] 1,000 mg PO TID #1 tablet 03/01/18 Ibuprofen 800 mg PO TID PRN #1 tablet 03/01/18 Omeprazole 20 mg PO DAILY #1 tablet.dr 03/01/18 Following Prescrptions Were Given to Patient: Omeprazole 20 mg PO DAILY #1 tablet. Acetaminophen [Tylenol Extra Strength] 1,000 mg PO TID #1 tablet Ibuprofen 800 mg PO TID PRN #1 tablet PRN Reason: pain. fever Primary Care Physician: Antoine Tate III, MD [Primary Care Provider] - Within 2 Weeks Disposition: Home Minutes spent on discharge:: 45 Patient Condition:: Good Medical Necessity - Tobacco Use Smoking Status: Never smoker Tobacco Use: Non-smoker Meaningful Use Info Meaningful Use Diagnoses (Choose all that apply): None applicable Code Visit OBSV E&M: 38611 Observation care discharge
--- NOTE | 2018-03-01 18:05 | NURSING ---
all patient care, documentation, and medication administration by Mio Have, student nurse, done under the supervision of this RN.
== END 2018-03-01 16:32 | disposition home or self-care (01) ==
LOC: ED 05:55 → PCU 11:39
PROVIDERS: Emergency Provider Emergency Medicine; Family Provider Family Medicine; PCP Family Medicine
DX: I63.8 Other cerebral infarction (principal); R53.1 Weakness; M25.50 Pain in unspecified joint; R59.1 Generalized enlarged lymph nodes; I07.1 Rheumatic tricuspid insufficiency; Z86.73 Personal history of transient ischemic attack (TIA), and cerebral infarction without residual deficits
CPT/HCPCS: 70450; 70544; 70549; 70553; 71260; 72141; 80053; 82550; 82962; 83735; 84443; 85025; 85652; 86140; 93306; 99284; A9585; Q9967; A4216

== ENCOUNTER → 2018-03-02 12:49 | Outpatient (CLI) | payer OTHER, SELFPAY ==
[2018-03-02 13:43] LABS: Absolute Lymphocyte Count 1.83 X10^3/ul (0.83-4.51); Absolute Neutrophil Count 3.8 X10^3/uL (2.0-7.7); Basophil# 0.07 X10^3/uL; Basophil% 1.1 % (0-1); Eosinophil# 0.34 X10^3/uL; Eosinophils% 5.1 % (0-5); Hematocrit 41.1 % (40-54); Hemoglobin 13.2 g/dl (13.0-16.5); Lymphocyte # 1.83 X10^3/ul (4.0); Lymphocyte % 27.5 % (19-41); Mean Corp Hgb Conc 32.1 g/gl (32-36); Mean Corpuscular Hgb 29.3 pg (27.0-32.0); Mean Corpuscular Volume 91.1 fL (80-94); Mean Platelet Vol. 10.4 fl (6.2-12.0); Monocyte# 0.59 X10^3/uL; Monocyte% 8.9 % (0-10); Neutrophil # 3.81 X10^3/uL (2.7-7.7); Neutrophil % 57.2 % (47-70); Platelet Count 285 K/mm3 (150-450); RBC Distribution Width CV 13.5 % (11.6-14.6); RBC Distribution Width SD 44.6 fl (35.1-43.9); Red Blood Count 4.51 M/mm3 (4.6-6.2); White Blood Count 6.7 K/mm3 (4.4-11.0)
[2018-03-02 13:48] LABS: POSITIVE COUNT NO; POSITIVE DIFFERENTIAL NO; POSITIVE MORPHOLOGY NO
[2018-03-02 13:56] LABS: Erythrocyte Sedimentation Rate 8 mm/hr (0-15)
[2018-03-02 14:04] LABS: CRP 5.58 mg/L (0.0-3.0); Rheumatoid Factor < 10.0 IU/mL (<15)
[2018-03-04 11:14] LABS: ASO Titer 131.7 IU/mL (0.0-200.0)
== END ==
PROVIDERS: Family Provider Family Medicine; PCP Family Medicine; Visit Provider Nurse Practitioner Family
DX: M25.50 Pain in unspecified joint (principal)
CPT/HCPCS: 36415; 85025; 85652; 86060; 86140; 86431

== ENCOUNTER 2018-08-30 09:22 | Emergency (ER) | payer OTHER, SELFPAY ==
[2018-08-30 09:22] VITALS: BP 137/74; PULSE 72; RESP 18; TEMP 36.6; O2SAT 99; BMI 34.4
--- NOTE | 2018-08-30 09:40 | ED.VISSUMM ---
- ER Visit Summary Date of Service: 08/30/18 Chief Complaint: [] Left foot injury 3 weeks ago History of Present Illness: The patient is a 43 M [] patient reports he was walking barefoot and he inadvertently stepped on an acorn type not, he is had pain base of foot between the great and second toe, it has persisted he comes in for evaluation. He has no other complaints no history of injury to that foot he denies any past history indicates the pain is worse when he steps down sometimes he feels if the bones are shifting Physical Examination: [] His vital signs are unremarkable he is resting comfortably in the bed he points to one focal area of the foot see the template it involves the base between the great and second toe head neck chest abdomen back unremarkable the lower extremities upper extremities are unremarkable except for the left foot the left foot he has a very mild to moderate tenderness to palpation of the spot, there is no crepitance subcu air warmth or signs of infection there is no puncture of the skin is intact the toes are warm and well perfused the dorsalis pedis pulses normal the rest exams unremarkable Test Results: [] Emergency Department Course and Treatment: [] xRays obtained he did declined pain management, x-ray shows nothing acute per radiology, again we discussed the concept of an occult injury such as a stress fracture etc. he is patent placed in a short walking boot ice elevation [id number] pain management he is referred to podiatry for further management Treatment Plan: [] Disposition: [] Home stable Impression: [] Acute left foot injury occult injury This note was generated with [employer] dictation software. It may contain incorrect words, spelling, and punctuation that were not noted in review of the chart prior to signing ED Disposition - Plan for ED Patient: Chief Complaint: Lower Extremity Injury Referrals: Antoine Tate III, MD [Primary Care Provider] -
--- NOTE | 2018-08-30 09:43 | RAD_ITS ---
STUDY: X-RAY - LEFT FOOT CLINICAL: Male, 43 years old. Pain of the second toe following injury. TECHNIQUE: 3 view(s) of the foot. COMPARISON: None. FINDINGS: Normal talus, calcaneus, and tarsal bones. Normal visualized subtalar, talonavicular, calcaneocuboid, tarsal and tarsometatarsal articulations. Normal metatarsi. Normal metatarsophalangeal joint of the great toe. Normal tibial and fibular sesamoid bones. Normal interphalangeal joint of the great toe. Normal phalanges of the great toe. Normal second through fifth metatarsophalangeal joints. Normal interphalangeal joints and phalanges of the lesser toes. The soft tissue structures are unremarkable. RAD/Foot min 3 Views IMPRESSION: Normal x-ray examination of the foot. Electronically Signed: Brandt Myers MD at 10:01 EDT Tel [phone], Service support ,
--- NOTE | 2018-08-30 10:10 | ED.DEP ---
ED Disposition - Plan for ED Patient: Chief Complaint: Lower Extremity Injury Instructions: ED Contusion Foot Referrals: Antoine Tate III, MD [Primary Care Provider] - Jorge Fitzgerald DPM [STAFF PHYSICIAN] -
[2018-08-30 10:31] VITALS: BP 134/74; PULSE 69; RESP 15; O2SAT 98
== END 2018-08-30 10:31 | disposition home or self-care (01) ==
LOC: ED 09:40
PROVIDERS: Emergency Provider Emergency Medicine; Family Provider Family Medicine; PCP Family Medicine
DX: S99.922A Unspecified injury of left foot, initial encounter (principal); W22.8XXA Striking against or struck by other objects, initial encounter; Y93.01 Activity, walking, marching and hiking; Y92.9 Unspecified place or not applicable
CPT/HCPCS: 73630; 99283

== ENCOUNTER 2019-09-05 11:30 | Emergency (ER) | payer OTHER, SELFPAY ==
[2019-09-05 11:31] VITALS: BP 123/83; PULSE 73; RESP 18; TEMP 36.3; O2SAT 98; BMI 35.2
--- NOTE | 2019-09-05 11:56 | RAD_ITS ---
STUDY: X-RAY - PELVIS AND RIGHT HIP REASON FOR EXAM: Male, 44 years old. Right hip pain. TECHNIQUE: 3 views of the pelvis and hip. COMPARISON: None. FINDINGS: There is a non-specific bowel gas pattern. Normal visualized soft tissue structures. Normal bilateral iliac wings, sacroiliac joints and visualized sacrum. Normal bilateral superior and inferior pubic rami. Normal pubic symphysis. Normal bilateral ischial tuberosities. The patient is status post right hip replacement. There is good alignment. No evidence of fracture or dislocation. RAD/HIP, UNI W/ Pelvis 2-3 Views IMPRESSION: Status post right hip replacement. No acute abnormality is seen. Electronically Signed: Brandt Myers, at 12:45 EDT , Service support ,
--- NOTE | 2019-09-05 12:50 | ED.DCSUM_ITS ---
- ER Visit Summary Date of Service: 09/05/19 Chief Complaint: [Injury to back and right hip] History of Present Illness: The patient is a 44 M [resents to the emergency department after injuring his right hip. 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 Patient having pain with ambulation in the right hip. Patient is concerned because he has had prior right hip replacement. Patient denies any paresthesias or pain going down into the legs. Denies weakness in the extremity. At rest he really does not have much discomfort at all. This will be Workmen's Comp.] Physical Examination: [HEENT-PERRLA, EOMI. Cranial nerves II through XII grossly intact. TMs clear. Mucous membranes moist. No adenopathy. Cardiovascular-regular rate and rhythm without murmur or ectopy Lungs-clear to auscultation, chest wall stable without crepitus or subcu emphysema Abdomen-normoactive bowel sounds, soft, nontender, no rebound or rigidity, no peritoneal signs. Back exam-no real tenderness over the thoracic or lumbar spine. Patient has some mild discomfort over the right PSIS joint. Deep tendon reflexes are plus out of 4 bilaterally at the patella and Achilles. Patient has normal 5 extension. Extremities-intact ?4, normal range of motion, normal pulses, atraumatic. Patient has some mild tenderness over the right hip. Minimal discomfort with range of motion at the hip. Negative straight leg raises.] Test Results: [Patient had x-rays of the right hip and pelvis which showed nothing acute.] Emergency Department Course and Treatment: [Denies anything for pain.] Treatment Plan: [She will use Advil for discomfort. Patient advised to follow- up with corporate care in 3 to 5 days.] Disposition: [Discharged home in stable condition] Impression: [Right hip strain] This note was generated with [employer] dictation software. It may contain incorrect words, spelling, and punctuation that were not noted in review of the chart prior to signing ED Disposition - Plan for ED Patient: Referrals: Antoine Tate III, MD [Primary Care Provider] -
--- NOTE | 2019-09-05 12:53 | DCINST.ED_ITS ---
ED Disposition - Plan for ED Patient: Instructions: Hip Strain Referrals: Antoine Tate III, MD [Primary Care Provider] - [facility] [GROUP OF PHYSICIANS] - 3-5 Days
--- NOTE | 2019-09-05 12:53 | ED.DEP ---
ED Disposition - Plan for ED Patient: Instructions: Hip Strain Referrals: Antoine Tate III, MD [Primary Care Provider] - [facility] [GROUP OF PHYSICIANS] - 3-5 Days
== END 2019-09-05 13:17 | disposition home or self-care (01) ==
LOC: ED 12:03
PROVIDERS: Emergency Provider Emergency Medicine; Family Provider Family Medicine; PCP Family Medicine
DX: S76.011A Strain of muscle, fascia and tendon of right hip, initial encounter (principal); S39.92XA Unspecified injury of lower back, initial encounter; X50.1XXA Overexertion from prolonged static or awkward postures, initial encounter; Y93.9 Activity, unspecified; Y92.89 Other specified places as the place of occurrence of the external cause; Y99.0 Civilian activity done for income or pay; Z96.641 Presence of right artificial hip joint; Z86.73 Personal history of transient ischemic attack (TIA), and cerebral infarction without residual deficits
CPT/HCPCS: 73502; 99282

== ENCOUNTER → 2021-03-17 10:30 | Outpatient (CLI) | payer OTHER, SELFPAY ==
--- NOTE | 2021-03-17 10:34 | RAD_ITS ---
STUDY: X-RAY - LEFT SHOULDER REASON FOR EXAM: Male, 45 years old. left shoulder pain/fall TECHNIQUE: 4 view(s) of the shoulder. COMPARISON: 11/05/2012. FINDINGS: No acute fracture, dislocation or osseous destruction. No significant joint space narrowing. No significant productive changes. No significant soft tissue swelling. Coracoclavicular ligamentous calcification. RAD/Shoulder min 2 Views IMPRESSION: Left shoulder intact Electronically Signed: Uri Zamudio DO at 10:54 EDT Tel , Service support ,
== END ==
PROVIDERS: PCP Family Medicine; Referring Provider Physician Assistant Surgical; Visit Provider Physician Assistant Surgical
DX: S46.912A Strain of unspecified muscle, fascia and tendon at shoulder and upper arm level, left arm, initial encounter (principal)
CPT/HCPCS: 73030

== ENCOUNTER 2021-08-06 19:14 | Emergency (ER) | payer OTHER, SELFPAY ==
[2021-08-06 19:14] VITALS: BP 116/79; PULSE 110; RESP 18; TEMP 36.3; O2SAT 96; BMI 34.4
--- NOTE | 2021-08-06 19:58 | RAD_ITS ---
INDICATION: injury EXAMINATION/TECHNIQUE: X-RAY - RIGHT XR Foot Min 3 Views 3 VIEWS COMPARISON: 08/30/2018 left foot x-rays FINDINGS: No definite fracture. No malalignment. Subtle lucency through the base of the fifth metatarsal questionable for nondisplaced fracture. Please correlate clinically for associated pain. 30 degree hallux valgus deformity and minimal degenerative changes first metatarsal-phalangeal joint and sesamoid articulations. No other malalignment. No appreciable soft tissue swelling or abnormal soft tissue calcifications. RAD/Foot min 3 Views IMPRESSION: Questionable nondisplaced fracture involving the base of the fifth metatarsal. Correlate clinically for tenderness in this area. 30 degree hallux valgus deformity and minimal degenerative changes first metatarsal-phalangeal joint. Electronically Signed: Paresh Elam DO at 20:59 EDT Tel , Service support ,
--- NOTE | 2021-08-06 21:24 | ED.VIS.LOWEX ---
HPI History of Present Illness Chief Complaint: Lower Extremity Injury Narrative Narrative: Patient is a 46-year-old male who states he was at work today when he took a monitor off and it fell approximately 4 to 5 feet landing on his right foot. He states he had his shoes on but with the direct trauma has pain mainly around the right great toe. He denies any other injury but states he is concerned he may have broken the toe and secondary to this comes in for evaluation PFSH PFS Home Medications acetaminophen 1,000 mg PO TID #1 tab 03/01/18 [Rx Last Taken Unknown] ibuprofen 800 mg PO TID PRN #1 tab 03/01/18 [Rx Last Taken Unknown] Allergy/AdvReac Type Severity Reaction Status Date / Time tramadol AdvReac Other Verified 08/06/21 19:14 Social History Smoking Status: Never smoker ROS ROS ED Constitutional Constitutional ED: Denies chills or fever(s) Cardiovascular Cardiovascular: Denies chest pain Respiratory/Chest Respiratory/Chest: Denies cough or dyspnea Gastrointestinal Gastrointestinal: Denies abdominal pain, diarrhea, nausea or vomiting Genitourinary Genitourinary ED: Denies dysuria Musculoskeletal Musculoskeletal: Reports other Details: Positive right foot pain ; Denies myalgias Integumentary Denies Abrasions or rash Neurologic Neurologic: Denies headache(s) Hematologic/Lymphatic Hematologic/Lymphatic: Denies easy bleeding or easy bruising EXAM Physical Exam Const Vital Signs: 08/06/21 19:14 Temperature 97.4 F L Temperature Source Temporal Pulse Rate 110 H Respiratory Rate 18 Blood Pressure 116/79 Blood Pressure Mean 91 Pulse Ox 96 Oxygen Delivery Method Room Air Positive well nourished and well developed General Appearance ED: well developed Eyes PERRL and EOMs intact bilaterally Neck full ROM and supple Resp normal respiratory effort and clear to auscultation bilaterally Cardio regular rate and regular rhythm Extremity Extremity Narrative: Right lower extremity is neurovascularly intact. No bony deformity or joint effusion noted. No ligamentous laxity or tendon injury. There is pain on palpation along the first MTP joint. Ankle ligaments are stable and Achilles tendon is intact. No subungual hematoma noted Neuro oriented x3 and CN's II-XII intact bilaterally Sensorium / Orientation: alert Psych mental status grossly normal Skin no rashes or lesions noted Skin Narrative: No abrasions or ecchymosis noted Rashes: no rashes MDM MDM MDM Narrative Medical decision making narrative: Patient presented with a direct trauma to his right foot. An x-ray was obtained which shows no acute fracture or dislocation. It did question a possible nondisplaced fracture of the fifth metatarsal but patient does not have any pain at this site and therefore does not clinically correlate. Patient therefore has diagnosis of a right foot contusion and is otherwise safe for discharge with symptomatic care Radiography Diagnostic Testing: Radiology Impression Foot X-Ray 08/06/21 19:58 IMPRESSION: Questionable nondisplaced fracture involving the base of the fifth metatarsal. Correlate clinically for tenderness in this area. 30 degree hallux valgus deformity and minimal degenerative changes first metatarsal-phalangeal joint. Electronically Signed: Paresh Elam DO at 20:59 EDT Tel , Service support , Discharge Plan Triage Chief Complaint: Lower Extremity Injury ED Provider: Bruce Noland Dx/Rx/DC Orders Clinical Impression: Contusion of foot, right Instructions: Bone Contusion Prescriptions: No Action ibuprofen 800 MG tablet 800 mg PO TID PRN (Reason: pain. fever) Qty: 1 RF: 0 acetaminophen 500 MG tablet 1,000 mg PO TID Qty: 1 RF: 0 Primary Care Provider: Antoine Tate III Referrals: Antoine Tate III, MD [Primary Care Provider] - Disposition Disposition: Home, Self Care
== END 2021-08-06 21:34 | disposition home or self-care (01) ==
PROVIDERS: Emergency Provider Emergency Medicine; PCP Family Medicine
DX: S90.31XA Contusion of right foot, initial encounter (principal); W20.8XXA Other cause of strike by thrown, projected or falling object, initial encounter; Y93.89 Activity, other specified; Y92.89 Other specified places as the place of occurrence of the external cause; Y99.0 Civilian activity done for income or pay
CPT/HCPCS: 73630; 99282

== ENCOUNTER 2022-02-19 10:14 | Outpatient (REF) | payer OTHER, SELFPAY ==
[2022-02-19 10:15] VITALS: BP 133/87; PULSE 114; RESP 16; TEMP 36.7; O2SAT 97; BMI 35.2
--- NOTE | 2022-02-19 10:26 | EDS_ITS ---
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 He has no other injuries. His tetanus is not up-to-date. Tetanus Immunization: Unknown [facility] Medical History Stroke/cerebrovascular accident Allergy/AdvReac Type Severity Reaction Status Date / Time tramadol AdvReac Other Verified 08/06/21 19:14 Surgical History H/O splenectomy History of hip replacement Social History Smoking Status: Never smoker ROS ROS ED ROS Narrative Past medical history: none Medications: Reviewed Social history: Noncontributory Review of systems: Musculoskeletal: Right hand abrasion as in HPI Skin: Abrasion as above Neurological: No weakness or paresthesias Hematologic: No easy bleeding or easy bruising EXAM Physical Exam Narrative Exam Narrative: Physical exam General: Patient does not appear in significant distress . Head: Normocephalic, Atraumatic Neck: No C-spine tenderness Cardiovascular: Normal distal pulses Extremities: Right palm shows about a 3 to 4 mm small abrasion. Patient is neurovascularly intact. Skin: As above Neurological: Normal strength and sensation Const Vital Signs: 02/19/22 10:15 Temperature 98.0 F Temperature Source Temporal Pulse Rate 114 H Respiratory Rate 16 Blood Pressure 133/87 H Blood Pressure Mean 102 Pulse Ox 97 Oxygen Delivery Method Room Air MDM MDM MDM Narrative Medical decision making narrative: Tetanus will be updated patient will be reassured. At this time I do not believe he needs prophylaxis for bacterial infection or any kind of contractable diseases. Discharge Plan Triage Chief Complaint: Occup Expose ED Provider: Omar Mcgovern Dx/Rx/DC Orders Clinical Impression: Occupational exposure in workplace, Abrasion hand Instructions: ED Abrasion Primary Care Provider: NOT,DEFINED Referrals: NOT,DEFINED [Primary Care Provider] - Disposition Disposition: Home, Self Care
[2022-02-19] MEDS: Diphth,Pertuss(Acell),Tet Vac 0.5 ML Vial IM (10:41)
[2022-02-19 12:04] LABS: HIV - WCH Non-Reactive (Nonreactive); Hepatitis B Surface Antibody Reactive; Hepatitis B Surface Antigen Non-Reactive (Nonreactive); Hepatitis C Antibody Non-Reactive (Nonreactive)
[2022-02-23 16:53] LABS: Hepatitis B Core Ab Total Negative (Negative)
== END 2022-02-19 23:59 | disposition home or self-care (01) ==
LOC: ED 10:14
PROVIDERS: Visit Provider Emergency Medicine
DX: S60.511A Abrasion of right hand, initial encounter (principal); W50.4XXA Accidental scratch by another person, initial encounter; Y99.0 Civilian activity done for income or pay; Z57.8 Occupational exposure to other risk factors
CPT/HCPCS: 36415; 86703; 86704; 86706; 86803; 87340; 90471; 99283

== ENCOUNTER 2023-08-11 10:05 | Emergency (ER) | payer OTHER, SELFPAY ==
[2023-08-11 10:05] VITALS: TEMP 36.4; BMI 35.9
--- NOTE | 2023-08-11 10:22 | RAD_ITS ---
STUDY: X-RAY - UNILATERAL RIBS ( LEFT ) WITH CHEST REASON FOR EXAM: Male, 48 years old. Pain following injury. TECHNIQUE - RIBS: 5 view(s) of the ribs. TECHNIQUE - CHEST: Single PA view of the chest. COMPARISON: None. FINDINGS - RIBS: Normal visualized ribs without a demonstrated fracture. FINDINGS - CHEST: The lungs are clear and expanded. There is no demonstrated pleural abnormality. Normal size heart. Normal mediastinum and serina. Normal visualized pulmonary arteries. Normal visualized aortic arch and descending thoracic aorta. There are degenerative changes of the visualized thoracic spine. Normal visualized ribs, clavicles, and shoulders. There is no demonstrated abnormality of the visualized soft tissue structures of the upper abdomen. RAD/Ribs Uni Min 3V w/PA Chest IMPRESSION: RIBS: Normal x-ray examination of the ribs. CHEST: Normal x-ray examination of the chest. Electronically Signed: Brandt Myers MD at 11:11 EDT ,
--- NOTE | 2023-08-11 10:23 | EDS_ITS ---
HPI History of Present Illness Chief Complaint: Chest Other Detail of Chief Complaint: Blunt chest injury Informant: patient Onset/Context/Timing Onset: Today Narrative Narrative: Patient presents for evaluation of blunt chest injury. 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 Patient was hit in the left lower ribs with an elbow. He has pain to the anterior left lower ribs. No shortness of breath. PFSH PFS Medical History Stroke/cerebrovascular accident Allergy/AdvReac Type Severity Reaction Status Date / Time tramadol AdvReac Other Verified 08/11/23 10:05 Surgical History H/O splenectomy History of hip replacement Social History Smoking Status: Never smoker ROS ROS ED Constitutional Constitutional ED: Denies chills or fever(s) ENT ENT ED: Denies rhinorrhea or sore throat Cardiovascular Cardiovascular: Reports chest pain; Denies palpitations Respiratory/Chest Respiratory/Chest: Denies cough or dyspnea Gastrointestinal Gastrointestinal: Denies abdominal pain, nausea or vomiting Musculoskeletal Musculoskeletal: Denies back pain or extremity pain Integumentary Denies Abrasions or rash Neurologic Neurologic: Denies headache(s) or weakness Allergic/Immunologic Allergic/Immunologic ED: Denies lip swelling or urticaria EXAM Physical Exam Const Vital Signs: 08/11/23 10:05 08/11/23 10:07 Temperature 97.6 F L Temperature Source Temporal Respiratory Effort Normal Positive well nourished and well developed General Appearance ED: well developed Eyes EOMs intact bilaterally Chest Wall inspection of chest normal Chest Narrative: Left anterior lower chest wall tenderness. No crepitus. No abrasions or ecchymosis. Resp normal respiratory effort and clear to auscultation bilaterally Cardio regular rhythm Rate: regular rate GI non-tender Palpation: soft Back/Spine normal to inspection Extremity normal to inspection Neuro oriented x3 Psych mental status grossly normal Skin no rashes or lesions noted MDM MDM MDM Narrative Medical decision making narrative: Patient declines anything for pain at this time. Rib series with chest x-ray obtained to evaluate for fracture, pneumothorax. Radiography Diagnostic Testing: Clinical Impression(s) from Imaging Studies Ribs w/Chest X-Ray 08/11/23 10:22 IMPRESSION: RIBS: Normal x-ray examination of the ribs. CHEST: Normal x-ray examination of the chest. Electronically Signed: Brandt Myers MD at 11:11 EDT , Treatment and Re-Evaluation Narrative: Rib series with chest x-ray per my interpretation reveals no obvious rib fracture or displacement. No evidence of pneumothorax. Radiology interpretat ion is reviewed and agrees. Patient be written off work today. [facility] Discharge Plan Triage Chief Complaint: Chest Other ED Provider: Melany Zaman Dx/Rx/DC Orders Clinical Impression: Chest wall contusion, Blunt injury of chest Instructions: ED Chest Wall Contusion Stand Alone Forms: Work Status Form Primary Care Provider: Care Physician,No Primary Referrals: Health,Employee [Non-Staff -Ordering Privileges] - 3-5 Days Care Physician,No Primary [Primary Care Provider] - Disposition Disposition: Home, Self Care
== END 2023-08-11 11:50 | disposition home or self-care (01) ==
PROVIDERS: Emergency Provider Emergency Medicine; Visit Provider Emergency Medicine
DX: S20.20XA Contusion of thorax, unspecified, initial encounter (principal); W50.0XXA Accidental hit or strike by another person, initial encounter; Y93.89 Activity, other specified; Y92.89 Other specified places as the place of occurrence of the external cause; Z86.73 Personal history of transient ischemic attack (TIA), and cerebral infarction without residual deficits; Z96.649 Presence of unspecified artificial hip joint
CPT/HCPCS: 71101; 99282

== ENCOUNTER 2024-02-17 14:25 | Outpatient (REF) | payer SELFPAY ==
[2024-02-17 14:29] VITALS: BP 111/53; PULSE 96; RESP 14; TEMP 36.1; O2SAT 98; BMI 35.9
--- NOTE | 2024-02-17 14:39 | EDS_ITS ---
HPI History of Present Illness Chief Complaint: Occup Expose Informant: patient Onset/Context/Timing Onset: Today Narrative Narrative: Patient presents secondary to needlestick exposure. 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 After starting the patient's IV the needle from the Angiocath did not completely retract and he suffered a needle puncture wound to the right thumb. He states it did bleed for short time but is no longer bleeding. [facility] Medical History Stroke/cerebrovascular accident Allergy/AdvReac Type Severity Reaction Status Date / Time tramadol AdvReac Other Verified 08/11/23 10:05 Surgical History H/O splenectomy History of hip replacement Social History Smoking Status: Never smoker ROS ROS ED Constitutional Constitutional ED: Denies fever(s) Cardiovascular Cardiovascular: Denies chest pain Respiratory/Chest Respiratory/Chest: Denies cough or dyspnea Integumentary Reports other Details: Puncture wound right thumb ; Denies rash Neurologic Neurologic: Denies paresthesias or weakness EXAM Physical Exam Const Vital Signs: 02/17/24 14:29 Temperature 97 F L Temperature Source Temporal Pulse Rate 96 Respiratory Rate 14 Blood Pressure 111/53 L Blood Pressure Mean 72 Pulse Ox 98 Oxygen Delivery Method Room Air Positive well nourished and well developed General Appearance ED: well developed HEENT Reports moist mucous membranes Eyes EOMs intact bilaterally Chest Wall inspection of chest normal Resp normal respiratory effort Cardio regular rate and regular rhythm Extremity Extremity Narrative: No active bleeding or obvious puncture site to the thumb at this time. Full range of motion of the digit without difficulty. MDM MDM MDM Narrative Medical decision making narrative: Protocol lab work for blood exposure obtained. Patient will follow-up with employee health. Discharge Plan Triage Chief Complaint: Occup Expose ED Provider: Melany Zaman Dx/Rx/DC Orders Clinical Impression: Occupational exposure in workplace Instructions: ED NEEDLE STICK Health Care Worker Primary Care Provider: Care Physician,No Primary Referrals: Health,Employee [Non-Staff -Ordering Privileges] - 3-5 Days Care Physician,No Primary [Primary Care Provider] - Disposition Disposition: Home, Self Care
[2024-02-17 15:51] LABS: HIV - WCH Non-Reactive (Nonreactive); Hepatitis B Surface Antibody Reactive; Hepatitis B Surface Antigen Non-Reactive (Nonreactive); Hepatitis C Antibody Non-Reactive (Nonreactive)
[2024-02-19 09:07] LABS: Hepatitis B Core Ab Total Negative (Negative)
== END 2024-02-17 15:23 | disposition home or self-care (01) ==
LOC: EDREF 14:25
PROVIDERS: Visit Provider Emergency Medicine
DX: S61.031A Puncture wound without foreign body of right thumb without damage to nail, initial encounter (principal); Z77.21 Contact with and (suspected) exposure to potentially hazardous body fluids; W46.0XXA Contact with hypodermic needle, initial encounter
CPT/HCPCS: 86703; 86704; 86706; 86803; 87340

== ENCOUNTER 2025-04-16 19:02 | Outpatient (REF) | payer SELFPAY ==
[2025-04-16 19:04] VITALS: PULSE 75; RESP 18; TEMP 36.7; O2SAT 98
--- NOTE | 2025-04-16 19:24 | EDS_ITS ---
HPI History of Present Illness Chief Complaint: Occup Expose Narrative Narrative: Chief complaint and HPI: Occupational exposure. 49-year-old male who is an employee here at [employer] presents for evaluation of occupational exposure. 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 Was wearing gloves. Was blood at the insertion site. Did clean the site with alcohol. Up-to-date on vaccines. Source patient is not known to have any blood-borne pathogen's. Review of systems: See HPI Medications: As listed on the chart Allergies: As listed on the chart PFSH: Per chart Vital signs: As listed on the chart. Reviewed. Physical exam: Gen: A&O x3, NAD Head: Normocephalic, atraumatic Eyes: No sclera icterus, conjunctiva clear ENT: Moist mucous membranes CV: Regular rate Resp: Nonlabored respirations Musc: Full ROM of the right upper extremity, there is a small puncture site from the needlestick on the volar aspect of his right middle finger between the PIP and DIP joint-currently no active bleeding, good capillary refill, sensation intact, radial pulse +2 Skin: Warm, dry Neuro: Alert, oriented, grossly intact, sensation intact Psych: Cooperative, appropriate mood and affect [facility] Medical History Stroke/cerebrovascular accident Allergy/AdvReac Type Severity Reaction Status Date / Time tramadol AdvReac Other Verified 04/16/25 19:03 Surgical History H/O splenectomy History of hip replacement Social History Smoking Status: Never smoker EXAM Physical Exam Const Vital Signs: 04/16/25 19:04 Temperature 98.1 F Temperature Source Temporal Pulse Rate 75 Respiratory Rate 18 Pulse Ox 98 Oxygen Delivery Method Room Air MDM MDM MDM Narrative Medical decision making narrative: 49-year-old male who is an employee here at [employer] presents for evaluation of occupational exposure. Was exposed to an accidental dirty needle injury. Patient has a small puncture wound to the volar aspect of his right middle finger between the PIP and DIP joint. Actively not bleeding. Originally cleaned with alcohol. Patient instructed to clean the area with soap and water. He is filling out a safety event form. Will drawl exposure labs for him as well as the source. Patient up-to-date on vaccines. Source patient is not known to have any blood-borne pathogen's. Follow-up with Worker's Compensation. He confirmed understanding of the plan. Patient stable to discharge home. Impression: 1. Occupational exposure 2. Dirty needlestick injury to the right middle finger Discharge Plan Triage Chief Complaint: Occup Expose ED Provider: Manuel Medina Dx/Rx/DC Orders Primary Care Provider: Care Physician,No Primary Referrals: Care Physician,No Primary [Primary Care Provider] - Print Language: Guinean
[2025-04-16 20:17] LABS: Hepatitis B Surface Antibody REAC
[2025-04-17 13:25] LABS: HIV Nonreactive (Nonreactive); Hepatitis B Surface Antigen Nonreactive (Nonreactive); Hepatitis C Antibody Nonreactive (Nonreactive)
== END 2025-04-16 19:39 | disposition home or self-care (01) ==
LOC: ED 19:02
PROVIDERS: Visit Provider Surgery
DX: Z77.21 Contact with and (suspected) exposure to potentially hazardous body fluids (principal); W46.0XXA Contact with hypodermic needle, initial encounter
CPT/HCPCS: 86703; 86706; 86803; 87340

== ENCOUNTER 2025-06-06 11:38 | Emergency (ER) | payer OTHER, SELFPAY ==
[2025-06-06 11:39] VITALS: BP 128/76; PULSE 63; RESP 16; TEMP 36.2; O2SAT 99; BMI 34.8
--- NOTE | 2025-06-06 11:40 | CT_ITS ---
EXAM: NONCONTRAST CT SCAN OF THE HEAD CLINICAL HISTORY: Sudden onset left temporal headache COMPARISON: None TECHNIQUE: Serial axial series through the head were obtained without contrast. 2-D coronal and sagittal reformats were then obtained. FINDINGS: Brain: There is focal encephalomalacia in the posterior left temporal lobe measuring 3.6 by 2.8 cm, image 23/42, with chronic features. There is focal encephalomalacia posterior to the head of the caudate on the left measuring 1.0 cm, with chronic features. There is no acute large territorial infarct, intracranial hemorrhage, midline shift or mass effect. There are atherosclerotic vascular calcifications involving the bilateral carotid siphons. The sella and pineal gland regions appear unremarkable. There is no evidence of cerebellar tonsillar herniation. Ventricles: There is no acute hydrocephalus. Basilar cisterns are patent. Paranasal sinuses: Mucosal thickening is visible in the right and left maxillary sinus. Mastoid air cells: Well-aerated. Calvarium: The bony calvarium is intact. Orbits: The bilateral globes are symmetric, without retrobulbar compressive mass lesion or hemorrhage. CT/Brain/Head without Contrast IMPRESSION: There is focal encephalomalacia in the posterior left temporal lobe measuring 3 .6 by 2.8 cm, image 23/42, with chronic features. There is focal encephalomalacia posterior to the head of the caudate on the lef t measuring 1.0 cm, with chronic features. Mucosal thickening is visible in the right and left maxillary sinus. Reading Location: [facility]
--- NOTE | 2025-06-06 12:29 | EX.ED.DYSGE1 ---
HPI History of Present Illness Chief Complaint: Neuro S/Sx Informant: patient Narrative Narrative: Patient is 49-year-old male with history of left temporal stroke is as a 2 year-old and prior splenectomy presenting with sudden onset of headache. Patient was at work when he had sudden pain in his left temporal region. Notes that his vision was little blurry today but he thought he just needed to clean his glasses. Denies any photophobia. Never had symptoms like this before. Describes the pain as like a muscle cramp in that area. He can pinpoint to the area with the tip of his finger. Denies any recent pain with jaw movements or jaw pain. Denies any recent illnesses. No associated nausea, vomiting, numbness or tingling. No speech changes. Is on any blood thinners and does not take any daily medication. No other complaints or concerns at this time. [facility] Medical History Stroke/cerebrovascular accident Allergy/AdvReac Type Severity Reaction Status Date / Time tramadol AdvReac Other Verified 06/06/25 11:39 Surgical History H/O splenectomy History of hip replacement Social History Smoking Status: Never smoker ROS ROS ED Constitutional Constitutional ED: Denies chills or fever(s) Eyes Eyes: Reports blurry vision ENT ENT ED: Denies ear pain, rhinorrhea or sore throat Cardiovascular Cardiovascular: Denies chest pain Respiratory/Chest Respiratory/Chest: Denies cough or dyspnea Gastrointestinal Gastrointestinal: Denies nausea or vomiting Neurologic Neurologic: Reports headache(s); Denies paresthesias or weakness EXAM Physical Exam Const Vital Signs: 06/06/25 11:39 Temperature 97.2 F L Temperature Source Temporal Pulse Rate 63 Respiratory Rate 16 Blood Pressure 128/76 H Blood Pressure Mean 93 Pulse Ox 99 Oxygen Delivery Method Room Air Positive well nourished and well developed General Appearance ED: well developed and NAD HEENT Reports TM's clear and moist mucous membranes HEENT Narrative: No reproducible tenderness of the left temporal region. No pain over the TMJ. No trismus. Negative for trauma Tympanic Membrane ED: Yes TM's clear Eyes PERRL and EOMs intact bilaterally Eyes Narrative: No visual field cut Neck supple and no JVD Chest Wall inspection of chest normal Resp normal respiratory effort and clear to auscultation bilaterally Cardio regular rate and regular rhythm Neuro oriented x3 and CN's II-XII intact bilaterally Neuro Narrative: NIH equals 0 Normal coordination Sensorium / Orientation: alert Motor Exam: Negative for general weakness Psych mental status grossly normal Skin no rashes or lesions noted MDM MDM MDM Narrative Medical decision making narrative: Patient evaluated for sudden onset of severe left temporal headache. 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 He has a normal neurologic exam. NIH is 0. CT of the brain is obtained his differential includes tension headache, muscle spasm and subarachnoid hemorrhage. CT of the brain shows area of prior encephalomalacia but no acute process. As the symptoms are less than 1 hour from timing of onset would expect to see signs of active bleeding if there was a ruptured aneurysm. With this being negative lower suspicion for other acute process. Chart review of an MRI of the head from 03/01/2018 is reviewed which was normal and there are no comments of any aneurysms. Patient is offered CTA of the head and neck to ensure there are no further/acute aneurysms that have not ruptured yet. He declines. Is comfortable following up outpatient. Given his normal neurologic exam I feel that this is a reasonable option. Counseled on very close return precautions. Is offered Tylenol ibuprofen for headache but states he can take some when he gets home. Encouraged to follow-up outpatient with primary care doctor. Discharged home in stable condition peer Radiography Diagnostic Testing: Clinical Impression(s) from Imaging Studies Brain CT 06/06/25 11:40 IMPRESSION: There is focal encephalomalacia in the posterior left temporal lobe measuring 3.6 by 2.8 cm, image 23/42, with chronic features. There is focal encephalomalacia posterior to the head of the caudate on the left measuring 1.0 cm, with chronic features. Mucosal thickening is visible in the right and left maxillary sinus. [facility] T[facility] Chief Complaint: Neuro S/Sx ED Provider: Sandra Benitez Dx/Rx/DC Orders Clinical Impression: Acute headache Instructions: ED Headache Unspecified Primary Care Provider: Care Physician,No Primary Referrals: Care Physician,No Primary [Primary Care Provider] - Print Language: Greenlandic Disposition Disposition: Home, Self Care
[2025-06-06 12:38] VITALS: BP 128/76; PULSE 63; RESP 16; TEMP 36.2; O2SAT 99
== END 2025-06-06 12:39 | disposition home or self-care (01) ==
PROVIDERS: Emergency Provider Emergency Medicine; Visit Provider Emergency Medicine
DX: R51.9 Headache, unspecified (principal); Z86.73 Personal history of transient ischemic attack (TIA), and cerebral infarction without residual deficits; H53.8 Other visual disturbances
CPT/HCPCS: 70450; 99282